=== PATIENT | male | born 1945 | race Caucasian/White ===

== ENCOUNTER 2017-05-12 11:57 | Day surgery (SDC) | payer MEDICARE, BC ==
[2017-05-12] MEDS ORDERED: LIDOCAINE HCL 10 APPL CARTRIDGE TP ONE (13:35)
--- NOTE | 2017-05-12 13:43 | OR ---
Operative Report - Dictated Report Narrative: Location: Main OR Anesthesia: None Preoperative Diagnosis: BPH with obstruction Postoperative Diagnosis: Same Procedure: #1 flexible cystoscopy with washing for cytology and culture Indications: 72-year-old diabetic male on Flomax and Proscar with persistent urinary symptomatology. Above-mentioned procedures indicated to assess her BPH with obstruction and determine whether or not surgery versus additional medical therapy may be indicated. Description: Consent obtained. Placed in the supine position. Prepped and draped. Time-out taken . Scope inserted into the urethra and navigated to the bladder with ease. No tumors stones or suspicious lesions. Bladder with incomplete emptying, elongation and trabeculation. No large diverticula but definite hypertrophy especially near the bladder neck. On retroflexion not much of an intravesical prostate but there is a median lobe like lip/high riding bladder neck. Looks obstructing. Washing was obtained sent for cytology and culture. Ureters normal in number and position . Prostate itself was medium to long in length with significant bilobar hypertrophy and evidence of obstruction at the bladder neck. Cystoscopically looks obstructing and based on prior ultrasound I would guess the size is a lot larger than the ultrasound estimated. Urethra otherwise normal with some mild nonspecific inflammatory change probably to diabetes EBL: 0 Specimen: Washing for cytology and culture Condition: tolerate procedure Important Findings: Fairly straightforward evidence of BPH with obstruction with obstructive change and an obstructing appearing prostate with trilobar hypertrophy and a higher riding bladder neck. Nonspecific urethral inflammation. FOLLOW UP: 05/11 ultrasound FM: No hydronephrosis. Residual 70 mL. Prostate volume 20 g but this is an underestimate based on cystoscopic volume.
[2017-05-12 14:04] LABS: Urine Bilirubin Negative (NEGATIVE); Urine Blood Negative /ul (NEGATIVE); Urine Ketone Negative (NEGATIVE); Urine Nitrite Negative (NEGATIVE); Urine Protein Negative (NEGATIVE); Urine Urobilinogen Normal (NORMAL); Urine pH 6.5 pH (5.0-7.0)
[2017-05-12 14:07] VITALS: BP 173/75
[2017-05-12 14:11] LABS: Urine Appearance Clear; Urine Bacteria None Seen; Urine Color Yellow; Urine RBC None Seen /hpf (0-5); Urine WBC None Seen /hpf (0-5)
== END 2017-05-12 11:58 | disposition home or self-care (01) ==
LOC: AMB 11:57
PROVIDERS: ATTEND Urology
PROC: 3E1K88X Irrigation of Genitourinary Tract using Irrigating Substance, Via Natural or Artificial Opening Endoscopic, Diagnostic (ICD-10-PCS; 2017-05-12)
PROC: 0TJB8ZZ Inspection of Bladder, Via Natural or Artificial Opening Endoscopic (ICD-10-PCS; principal; 2017-05-12 13:00)
DX: N40.1 Benign prostatic hyperplasia with lower urinary tract symptoms (principal); N13.8 Other obstructive and reflux uropathy; I10 Essential (primary) hypertension; E11.9 Type 2 diabetes mellitus without complications; Z68.36 Body mass index [BMI] 36.0-36.9, adult; N42.30 Unspecified dysplasia of prostate